=== PATIENT | female | born 1965 | race Caucasian/White ===

== ENCOUNTER 2019-06-01 18:12 | Emergency (ER) | payer OTHER ==
[~2019-06-01] VITALS: Ht 157.5 cm; Wt 76.7 kg
[2019-06-01 19:03] VITALS: BP_SYST 114; BP_SYST 118; BP_SYST 121; BP_DIAS 68; BP_DIAS 72; BP_DIAS 77
[2019-06-01 19:08] LABS: BASOPHILS % (AUTO) 0 % (0-10); EOSINOPHILS # (AUTO) 0.1 10^3/uL (0.0-0.3); EOSINOPHILS % (AUTO) 1 % (0-10); HEMATOCRIT 31 % (35-52); HEMOGLOBIN 9.2 G/DL (11.5-16.0); LYMPHOCYTES # (AUTO) 1.6 X 10^3 (1.0-4.0); LYMPHOCYTES % (AUTO) 21 % (12-44); MEAN CORPUSCULAR HEMOGLOBIN 21 PG (25-34); MEAN CORPUSCULAR HGB CONC 30 G/DL (32-36); MEAN CORPUSCULAR VOLUME 72 FL (80-99); MEAN PLATELET VOLUME 10.1 FL (7.4-10.4); MONOCYTES # (AUTO) 0.8 X 10^3 (0.0-1.0); MONOCYTES % (AUTO) 10 % (0-12); NEUTROPHILS # (AUTO) 5.1 X 10^3 (1.8-7.8); NEUTROPHILS % (AUTO) 68 % (42-75); PLATELET COUNT 422 10^3/uL (130-400); RED CELL DISTRIBUTION WIDTH 16.1 % (10.0-14.5); WHITE BLOOD COUNT 7.5 10^3/uL (4.3-11.0)
--- NOTE | 2019-06-01 19:10 | Diagnostic Imaging Report ---
INDICATION: Dizziness and difficulty breathing. FINDINGS: The heart size, mediastinal configuration, and pulmonary vascularity are within normal limits. There is no pleural effusion, pneumothorax, or pneumonia. The osseous structures are unremarkable. IMPRESSION: No acute cardiopulmonary abnormality. Dictated by: Dictated on workstation # [id number]
[2019-06-01 19:18] LABS: PROTHROMBIN TIME PATIENT 13.1 SEC (12.2-14.7)
[2019-06-01 19:29] LABS: BUN/CREATININE RATIO 16; CARBON DIOXIDE 24 MMOL/L (21-32); CHLORIDE 104 MMOL/L (98-107); CREATININE SERUM 0.99 MG/DL (0.60-1.30); POTASSIUM 4.1 MMOL/L (3.6-5.0); SODIUM 136 MMOL/L (135-145)
[2019-06-01 19:30] LABS: ALANINE AMINOTRANSFERASE 15 U/L (0-55); ALBUMIN 4.2 GM/DL (3.2-4.5); ALKALINE PHOSPHATASE 81 U/L (40-136); BILIRUBIN,TOTAL 0.3 MG/DL (0.1-1.0); CALCIUM 9.3 MG/DL (8.5-10.1); GFR ESTIMATED 59; GLUCOSE 115 MG/DL (70-105); MAGNESIUM 2.1 MG/DL (1.8-2.4); TOTAL PROTEIN 8.2 GM/DL (6.4-8.2)
--- NOTE | 2019-06-01 20:14 | ED General ---
General Chief Complaint: Dizziness/Syncope Stated Complaint: DIZZY Nursing Triage Note: pt was started on clonidine on wednesday for BP et since has had dizzy spells. She's nauseated and feels like shes having heart palpatations Nursing Sepsis Screen: No Definite Risk Source of Information: Patient Exam Limitations: No Limitations History of Present Illness Date Seen by Provider: Jun 01, 2019 Time Seen by Provider: 20:12 Past Cdzxmxk-Hawdtw-Scysod Hx Patient Social History Alcohol Use: Occasionally Uses Recreational Drug Use: No Smoking Status: Never a Smoker 2nd Hand Smoke Exposure: No Recent Foreign Travel: No Contact w/Someone Who Travel: No Recent Infectious Disease Expo: No Recent Hopitalizations: No Physical Abuse: No Sexual Abuse: No Mistreated: No Fear: No Seasonal Allergies Seasonal Allergies: No Past Medical History Surgeries: Yes (GASTRIC BYPASS) Appendectomy, Section, Orthopedic Respiratory: No Hypertension Neurological: Yes (SEIZURE 10-11 YEARS AGO) Female Reproductive Disorders: Denies [employer]ER History: Menopausal Sexually Transmitted Disease: No HIV/AIDS: No Genitourinary: Yes Kidney Infection Gastrointestinal: No Musculoskeletal: Yes Back Injury, Fractures Endocrine: No HEENT: No Loss of Vision: Denies Hearing Impairment: Denies Cancer: No Depression Integumentary: No Blood Disorders: Yes (PREVIOUS ANEMIA) Physical Exam Vital Signs Vital Signs - First Documented 06/01/19 18:18 Temp 96.9 Pulse 74 Resp 18 B/P (MAP) 119/60 (79) Pulse Ox 98 O2 Delivery Room Air Capillary Refill : Less Than 3 Seconds Height, Weight, BMI Height: 5'2.00" Weight: 169lbs. oz. 76.426071cl; BMI Method:Stated Progress/Results/Core Measures Suspected Sepsis Recent Fever Within 48 Hours: No Infection Criteria Present: None New/Unexplained Altered Menta: No Sepsis Screen: No Definite Risk SIRS Temperature:96.9 Pulse: 73 Respiratory Rate: 18 Laboratory Tests 06/01/19 18:49: White Blood Count 7.5 Blood Pressure 114 /68 Mean: 83 Laboratory Tests 06/01/19 18:49: Creatinine 0.99, INR Comment 1.0, Platelet Count 422H, Total Bilirubin 0.3 Results/Orders Lab Results Laboratory Tests Test 06/01/19 18:49 Range/Units White Blood Count 7.5 4.3-11.0 10^3/uL Red Blood Count 4.30 L 4.35-5.85 10^6/uL Hemoglobin 9.2 L 11.5-16.0 G/DL Hematocrit 31 L 35-52 % Mean Corpuscular Volume 72 L 80-99 FL Mean Corpuscular Hemoglobin 21 L 25-34 PG Mean Corpuscular Hemoglobin Concent 30 L 32-36 G/DL Red Cell Distribution Width 16.1 H 10.0-14.5 % Platelet Count 422 H 130-400 10^3/uL Mean Platelet Volume 10.1 7.4-10.4 FL Neutrophils (%) (Auto) 68 42-75 % Lymphocytes (%) (Auto) 21 12-44 % Monocytes (%) (Auto) 10 0-12 % Eosinophils (%) (Auto) 1 0-10 % Basophils (%) (Auto) 0 0-10 % Neutrophils # (Auto) 5.1 1.8-7.8 X 10^3 Lymphocytes # (Auto) 1.6 1.0-4.0 X 10^3 Monocytes # (Auto) 0.8 0.0-1.0 X 10^3 Eosinophils # (Auto) 0.1 0.0-0.3 10^3/uL Basophils # (Auto) 0.0 0.0-0.1 10^3/uL Prothrombin Time 13.1 12.2-14.7 SEC INR Comment 1.0 0.8-1.4 Activated Partial Thromboplast Time 26 24-35 SEC Sodium Level 136 135-145 MMOL/L Potassium Level 4.1 3.6-5.0 MMOL/L Chloride Level 104 98-107 MMOL/L Carbon Dioxide Level 24 21-32 MMOL/L Anion Gap 8 5-14 MMOL/L Blood Urea Nitrogen 16 7-18 MG/DL Creatinine 0.99 0.60-1.30 MG/DL Estimat Glomerular Filtration Rate 59 BUN/Creatinine Ratio 16 Glucose Level 115 H 70-105 MG/DL Calcium Level 9.3 8.5-10.1 MG/DL Corrected Calcium 9.1 8.5-10.1 MG/DL Magnesium Level 2.1 1.8-2.4 MG/DL Total Bilirubin 0.3 0.1-1.0 MG/DL Aspartate Amino Transf (AST/SGOT) 11 5-34 U/L Alanine Aminotransferase (ALT/SGPT) 15 0-55 U/L Alkaline Phosphatase 81 40-136 U/L Myoglobin 42.5 10.0-92.0 NG/ML Troponin I < 0.028 <0.028 NG/ML Total Protein 8.2 6.4-8.2 GM/DL Albumin 4.2 3.2-4.5 GM/DL Thyroid Stimulating Hormone (TSH) 1.70 0.35-4.94 UIU/ML My Orders Orders - MARKOS LEVIIS Cbc With Automated Diff (06/01/19 18:35) Magnesium (06/01/19 18:35) Chest 1 View, Ap/Pa Only (06/01/19 18:35) Ekg Tracing (06/01/19 18:35) Cardiac Profile 1 (06/01/19 18:35) Comprehensive Metabolic Panel (06/01/19 18:35) Myoglobin Serum (06/01/19 18:35) Protime With Inr (06/01/19 18:35) Partial Thromboplastin Time (06/01/19 18:35) O2 (06/01/19 18:35) Monitor-Rhythm Ecg Trace Only (06/01/19 18:35) Lipid Panel (06/02/19 06:00) Ed Iv/Invasive Line Start (06/01/19 18:35) Thyroid Stimulating Hormone (06/01/19 18:45) Orthostatic Vital Signs (Adult (06/01/19 18:54) Vital Signs/I&O 06/01/19 06/01/19 18:18 19:03 Temp 96.9 Pulse 74 60 68 73 Resp 18 B/P (MAP) 119/60 (79) 121/77 (92) 118/72 (87) 114/68 (83) Pulse Ox 98 O2 Delivery Room Air Capillary Refill : Less Than 3 Seconds Blood Pressure Mean: 83 Departure Impression Primary Impression: Chronic anemia Additional Impression: Adverse effect of clonidine Disposition: 01 HOME, SELF-CARE Condition: Stable/Unchanged Departure-Patient Inst. Decision time for Depature: 20:13 Referrals: [facility] (PCP/Family) Primary Care Physician Patient Instructions: Anemia of Chronic Disease Add. Discharge Instructions: Follow-up with [facility] within 1 week for recheck and to discuss management of your chronic anemia.. Call tomorrow morning to schedule an appointment time. Try taking just half a tab of clonidine and check your blood pressure regularly. Return back to the emergency room for worsening symptoms or concerns as needed. All discharge instructions reviewed with patient and/or family. Voiced understanding. TAMMIE LEVI Jun 01, 2019 20:14
[2019-06-01 20:16] VITALS: BP 137/67
== END 2019-06-01 20:20 | disposition home or self-care (01) ==
LOC: ER 18:14
DX: D64.9 Anemia, unspecified (principal); T46.5X5A Adverse effect of other antihypertensive drugs, initial encounter; I10 Essential (primary) hypertension; F32.9 Major depressive disorder, single episode, unspecified; Z98.84 Bariatric surgery status; Z90.49 Acquired absence of other specified parts of digestive tract
CPT/HCPCS: 36415; 71045; 80053; 83735; 83874; 84443; 84484; 85025; 85610; 85730; 93005; 93041

== ENCOUNTER 2019-11-08 13:08 | Observation (INO) | payer SELFPAY ==
[~2019-11-08] VITALS: Ht 154 cm; Wt 72.0 kg
[2019-11-08] VITALS (11 sets, daily range): BP systolic 98–151; BP diastolic 58–97
[2019-11-08] MEDS ORDERED: LACTATED RINGERS 1,000 ML IV ONE ×2 (13:20→15:15)
[2019-11-08 13:27] LABS: BASOPHILS % (AUTO) 0 % (0-10); EOSINOPHILS % (AUTO) 0 % (0-10); HEMATOCRIT 31 % (35-52); HEMOGLOBIN 9.6 G/DL (11.5-16.0); LYMPHOCYTES # (AUTO) 1.5 X 10^3 (1.0-4.0); LYMPHOCYTES % (AUTO) 9 % (12-44); MEAN CORPUSCULAR HEMOGLOBIN 22 PG (25-34); MEAN CORPUSCULAR HGB CONC 31 G/DL (32-36); MEAN CORPUSCULAR VOLUME 71 FL (80-99); MEAN PLATELET VOLUME 10.6 FL (7.4-10.4); MONOCYTES # (AUTO) 0.9 X 10^3 (0.0-1.0); MONOCYTES % (AUTO) 5 % (0-12); NEUTROPHILS % (AUTO) 86 % (42-75); PLATELET COUNT 508 10^3/uL (130-400); RED CELL DISTRIBUTION WIDTH 17.5 % (10.0-14.5); WHITE BLOOD COUNT 17.4 10^3/uL (4.3-11.0)
--- NOTE | 2019-11-08 13:33 | ED Psychosocial ---
General Stated Complaint: CONFUSION Source: patient Exam Limitations: no limitations History of Present Illness Date Seen by Provider: Nov 08, 2019 Time Seen by Provider: 13:09 Initial Comments Here with report of confusion. Apparently she was found in the bathroom confused and there is concerns about seizures or other problems. Patient then admits that she did not fall or hurt herself but she did take up to 30 0.1 mg clonidine. She denies suicidal intent and states that she was just waiting for her boyfriend. She states that she's had suicidal thoughts in the past but she is very sluggish and slurred speech so somewhat difficult to understand. Protecting her airway okay. No hypoxia or hypotension noted and heart rate in the 60s and 70s. Denies taking other medicines. Family reports they noted something was wrong when they heard her falling in the bathroom. Unsure exactly what time she took the pills. Timing/Duration: this afternoon Severity: severe Associated Symptoms: ingestion Allergies and Home Medications Allergies Coded Allergies: tramadol (Verified Allergy, Unknown, 11/08/19) Patient Home Medication List Home Medication List Reviewed: Yes Review of Systems Constitutional: see HPI; No chills, No fever Respiratory: no symptoms reported Cardiovascular: no symptoms reported Psychiatric/Neurological: See HPI, Emotional Problems Unable to complete review of systems due to altered mental status. She denies any pain, injury or other complaint currently. 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 oz. 76.169979ns; BMI Method:Stated General Appearance: WD/WN, no apparent distress HEENT: normal ENT inspection, pharynx normal, other (pupils sluggish then more pinpoint then dilated. No obvious head injury noted.) Neck: full range of motion, supple Respiratory: lungs clear, normal breath sounds Cardiovascular: regular rate, rhythm, no murmur Gastrointestinal: non tender, soft Extremities: non-tender, normal inspection Neurologic/Psychiatric: alert, depressed affect, other (slurred speech) Appearance/Memory: denies illness, disheveled Behavior/Eye Contact: cooperative, decreased rate of speech Thoughts/Hallucinations: no apparent hallucination Skin: normal color, warm/dry Progress/Results/Core Measures Results/Orders Lab Results Laboratory Tests Test 11/08/19 13:13 11/08/19 13:23 11/08/19 13:56 Range/Units White Blood Count 17.4 H 4.3-11.0 10^3/uL Red Blood Count 4.40 4.35-5.85 10^6/uL Hemoglobin 9.6 L 11.5-16.0 G/DL Hematocrit 31 L 35-52 % Mean Corpuscular Volume 71 L 80-99 FL Mean Corpuscular Hemoglobin 22 L 25-34 PG Mean Corpuscular Hemoglobin Concent 31 L 32-36 G/DL Red Cell Distribution Width 17.5 H 10.0-14.5 % Platelet Count 508 H 130-400 10^3/uL Mean Platelet Volume 10.6 H 7.4-10.4 FL Neutrophils (%) (Auto) 86 H 42-75 % Lymphocytes (%) (Auto) 9 L 12-44 % Monocytes (%) (Auto) 5 0-12 % Eosinophils (%) (Auto) 0 0-10 % Basophils (%) (Auto) 0 0-10 % Neutrophils # (Auto) 15.0 H 1.8-7.8 X 10^3 Lymphocytes # (Auto) 1.5 1.0-4.0 X 10^3 Monocytes # (Auto) 0.9 0.0-1.0 X 10^3 Eosinophils # (Auto) 0.0 0.0-0.3 10^3/uL Basophils # (Auto) 0.0 0.0-0.1 10^3/uL Neutrophils % (Manual) 79 % Lymphocytes % (Manual) 14 % Monocytes % (Manual) 4 % Eosinophils % (Manual) 1 % Basophils % (Manual) 0 % Band Neutrophils 2 % Anisocytosis SLIGHT Microcytosis SLIGHT Elliptocytes SLIGHT Urine Test NEGATIVE NEGATIVE Sodium Level 134 L 135-145 MMOL/L Potassium Level 4.7 3.6-5.0 MMOL/L Chloride Level 103 98-107 MMOL/L Carbon Dioxide Level 21 21-32 MMOL/L Anion Gap 10 5-14 MMOL/L Blood Urea Nitrogen 14 7-18 MG/DL Creatinine 0.80 0.60-1.30 MG/DL Estimat Glomerular Filtration Rate > 60 BUN/Creatinine Ratio 18 Glucose Level 159 H 70-105 MG/DL Calcium Level 9.2 8.5-10.1 MG/DL Corrected Calcium 9.2 8.5-10.1 MG/DL Total Bilirubin 0.5 0.1-1.0 MG/DL Aspartate Amino Transf (AST/SGOT) 19 5-34 U/L Alanine Aminotransferase (ALT/SGPT) 14 0-55 U/L Alkaline Phosphatase 90 40-136 U/L Total Protein 7.9 6.4-8.2 GM/DL Albumin 4.0 3.2-4.5 GM/DL Salicylates Level < 5.0 L 5.0-20.0 MG/DL Acetaminophen Level < 10 L 10-30 UG/ML Serum Alcohol < 10 <10 MG/DL Urine Color YELLOW Urine Clarity CLEAR Urine pH 5.5 5-9 Urine Specific [place] >=1.030 1.016-1.022 Urine Protein NEGATIVE NEGATIVE Urine Glucose (UA) NEGATIVE NEGATIVE Urine Ketones NEGATIVE NEGATIVE Urine Nitrite NEGATIVE NEGATIVE Urine Bilirubin NEGATIVE NEGATIVE Urine Urobilinogen 0.2 < = 1.0 MG/DL Urine Leukocyte Esterase NEGATIVE NEGATIVE Urine RBC (Auto) 1+ H NEGATIVE Urine RBC RARE /HPF Urine WBC RARE /HPF Urine Squamous Epithelial Cells 0-2 /HPF Urine Crystals NONE /LPF Urine Bacteria TRACE /HPF Urine Casts PRESENT /LPF Urine Hyaline Casts 0-2 H /LPF Urine Mucus SMALL H /LPF Urine Culture Indicated NO Urine Opiates Screen NEGATIVE NEGATIVE Urine Oxycodone Screen NEGATIVE NEGATIVE Urine Methadone Screen NEGATIVE NEGATIVE Urine Propoxyphene Screen NEGATIVE NEGATIVE Urine Barbiturates Screen NEGATIVE NEGATIVE Ur Tricyclic Antidepressants Screen NEGATIVE NEGATIVE Urine Phencyclidine Screen NEGATIVE NEGATIVE Urine Amphetamines Screen NEGATIVE NEGATIVE Urine Methamphetamines Screen NEGATIVE NEGATIVE Urine Benzodiazepines Screen NEGATIVE NEGATIVE Urine Cocaine Screen NEGATIVE NEGATIVE Urine Cannabinoids Screen NEGATIVE NEGATIVE Lactic Acid Level 1.99 0.50-2.00 MMOL/L Micro Results Microbiology 11/08/19 Influenza Types A,B Antigen (SHAYY) - Final, Complete My Orders Orders - ELMIRA REDD MD Ua Culture If Indicated (11/08/19 13:20) Cbc With Automated Diff (11/08/19 13:20) Comprehensive Metabolic Panel (11/08/19 13:20) Alcohol (11/08/19 13:20) Drug Screen Stat (Urine) (11/08/19 13:20) Acetaminophen (11/08/19 13:20) Salicylate (11/08/19 13:20) Ekg Tracing (11/08/19 13:20) Ed Iv/Invasive Line Start (11/08/19 13:20) Monitor-Rhythm Ecg Trace Only (11/08/19 13:20) Bh Status Checks/Observation Q15M (11/08/19 13:20) Ed Iv/Invasive Line Start (11/08/19 13:20) Ed Iv/Invasive Line Start (11/08/19 13:20) Ed Iv/Invasive Line Start (11/08/19 13:20) Lactated Ringers (Lr 1000 Ml Iv Solution (11/08/19 13:20) Manual Differential (11/08/19 13:13) Ct Head Wo (11/08/19 13:35) Hcg,Qualitative Urine (11/08/19 13:35) Chest 1 View, Ap/Pa Only (11/08/19 13:52) Lactic Acid Analyzer (11/08/19 13:52) Blood Culture (11/08/19 13:52) Influenza A And B Antigens (11/08/19 13:52) Ceftriaxone For Iv Use (Rocephin For I (11/08/19 15:15) Oseltamivir 75 Mg Capsule (Tamiflu 75 (11/08/19 15:15) Medications Given in ED Current Medications Medications Dose Ordered Sig/Brittaney Route Start Time Stop Time Status Last Admin Dose Admin Ceftriaxone Sodium 1000 mg/ Sterile Water 10 ml @ 200 mls/hr ONCE ONCE IV 11/08/19 15:15 11/08/19 15:17 11/08/19 15:10 200 MLS/HR Lactated Ringer's 1,000 ml @ 0 mls/hr Q0M ONCE IV 11/08/19 13:20 11/08/19 13:22 DC 11/08/19 13:40 0 MLS/HR Oseltamivir Phosphate 75 mg ONCE ONCE PO 11/08/19 15:15 11/08/19 15:16 11/08/19 15:10 75 MG Vital Signs/I&O 11/08/19 13:10 Temp 37.1 Pulse 75 Resp 18 B/P (MAP) 110/84 (93) Pulse Ox 97 Progress Progress Note : Progress Note Seen and evaluated. IV, labs, UA, UDS, LR 1 L bolus and monitor ordered. Monitor patient. We will go ahead and get CT head due to apparent falls. 10/29/04: I discussed the case with Dr. Soliz and she accepts patient for admission to observe past the concerning timeframe for clonidine overdose. Patient also found to have influenza B and pansinusitis so we will initiate Tamiflu and Rocephin 1 g IV. Blood pressure is on the low end of normal with blood pressure currently 102/58. We will continue IV fluids. I have discussed the case with Dr. Wheat and he accepts patient in consult. Admit to the ICU. Patient and family agree with plan. Initial ECG Impression Date: Nov 08, 2019 Initial ECG Impression Time: 13:13 Initial ECG Rate: 66 Initial ECG Rhythm: Normal Sinus Initial ECG Impression: Normal Initial ECG Comparisson: Unchanged Comment Sinus rhythm with normal axis. No evidence of ST elevation [place]. Unchanged from previous of 8/H was 19. Interpreted by me. Diagnostic Imaging Diagonstic Imaging: CT Plain Films/CT/US/NM/MRI: head Comments NAME: [facility] REC#: [id number] PT STATUS: REG ER : 1965 PHYSICIAN: ELMIRA REDD MD ADMIT DATE: 11/08/19/ER Draft Date of Exam:11/08/19 CT HEAD WO PROCEDURE: CT head without contrast. TECHNIQUE: Multiple contiguous axial images were obtained through the brain without the use of intravenous contrast. Auto Exposure Controls were utilized during the CT exam to meet ALARA standards for radiation dose reduction. INDICATION: Influenza and dizziness. COMPARISON: No prior studies are available for comparison. FINDINGS: The ventricles and sulci are within normal limits. No sulcal effacement or midline shift is detected. No acute intra-axial or extra-axial hemorrhage is detected. Cisterns are patent. Maxillary sinuses are opacified. There is fluid in the sphenoid sinus. There is mucosal thickening of multiple ethmoid air cells. IMPRESSION: 1. No acute intracranial process detected. 2. Pansinusitis. Dictated on workstation # [id number] Dict: 11/08/19 1445 Trans: 11/08/19 1451 [id number] Interpreted by: JAKE REARDON MD Electronically signed by: Departure Communication (Admissions) Time/Spoke to Admitting Phy: 14:55 Time/Spoke to Consulting Phy: 15:05 Impression Primary Impression: Drug overdose Qualified Codes: T50.904A - Poisoning by unspecified drugs, medicaments and biological substances, undetermined, initial encounter Additional Impressions: Influenza B Acute pansinusitis Qualified Codes: J01.41 - Acute recurrent pansinusitis Disposition: ADMITTED INPATIENT Condition: Stable Admissions Decision to Admit Reason: Admit from ER (General) Decision to Admit/Date: Nov 08, 2019 Time/Decision to Admit Time: 14:55 Departure-Patient Inst. Referrals: [facility] (PCP/Family) Primary Care Physician ELMIRA REDD MD Nov 08, 2019 13:33
[2019-11-08 13:37] LABS: BILIRUBIN,URINE NEGATIVE (NEGATIVE); CLARITY,URINE CLEAR; COLOR,URINE YELLOW; GLUCOSE, URINE (UA) NEGATIVE (NEGATIVE); KETONES,URINE NEGATIVE (NEGATIVE); LEUKOCYTE ESTERASE ,URINE NEGATIVE (NEGATIVE); NITRITE,URINE NEGATIVE (NEGATIVE); PH,URINE 5.5 (5-9); PROTEIN,URINE NEGATIVE (NEGATIVE)
[2019-11-08 13:45] LABS: ALANINE AMINOTRANSFERASE 14 U/L (0-55); ALKALINE PHOSPHATASE 90 U/L (40-136); BILIRUBIN,TOTAL 0.5 MG/DL (0.1-1.0); BUN/CREATININE RATIO 18; CALCIUM 9.2 MG/DL (8.5-10.1); CARBON DIOXIDE 21 MMOL/L (21-32); CHLORIDE 103 MMOL/L (98-107); GFR ESTIMATED > 60; GLUCOSE 159 MG/DL (70-105); POTASSIUM 4.7 MMOL/L (3.6-5.0); SALICYLATE < 5.0 MG/DL (5.0-20.0); SODIUM 134 MMOL/L (135-145); TOTAL PROTEIN 7.9 GM/DL (6.4-8.2)
[2019-11-08 13:46] LABS: ACETAMINOPHEN < 10 UG/ML (10-30)
[2019-11-08 13:52] LABS: BACTERIA,URINE TRACE /HPF; HYALINE CASTS, URINE 0-2 /LPF; RBC,URINE RARE /HPF; SQUAMOUS EPITHELIAL CELL,UR 0-2 /HPF; WBC,URINE RARE /HPF
[2019-11-08 13:54] LABS: AMPHETAMINE SCREEN, URINE NEGATIVE (NEGATIVE); BARBITURATE SCREEN URINE NEGATIVE (NEGATIVE); BENZODIAZEPINES SCREEN URINE NEGATIVE (NEGATIVE); CANNABINOID SCREEN, URINE NEGATIVE (NEGATIVE); COCAINE SCREEN URINE NEGATIVE (NEGATIVE); METHADONE STAT NEGATIVE (NEGATIVE); METHAMPHETAMINE SCREEN URINE S NEGATIVE (NEGATIVE); OPIATE SCREEN URINE NEGATIVE (NEGATIVE); OXYCODONE STAT NEGATIVE (NEGATIVE); PROPOXYPHENE STAT NEGATIVE (NEGATIVE); TRICYCLIC ANTIDEPRESSANTS SCRE NEGATIVE (NEGATIVE)
[2019-11-08] MEDS ORDERED: ZOLP5TAB3 (13:56)
[2019-11-08] MEDS ORDERED: TRZ50T (13:56)
[2019-11-08] MEDS ORDERED: CLON0.1T PO (13:56)
[2019-11-08] MEDS ORDERED: TIZA2TAB4 PO (13:56)
[2019-11-08] MEDS ORDERED: VORT10TA PO (13:56)
--- NOTE | 2019-11-08 14:00 | NUR ---
pt son here with pt medication. Clonidine 0.1 mg. Filled on 10/23/19 with 60 tabs, with 10 left. Tizanidine 2 mg. Filled on 10/30/19 with 60 tabs, and no left in the bottle. Trintellix 10 mg sample bottle 18 tablets in the bottle, with no prescription info on the bottle.
[2019-11-08 14:08] LABS: ANISOCYTOSIS SLIGHT; BAND NEUTROPHILS 2 %; BASOPHILS % (MANUAL) 0 %; ELLIPT/OVALOCYTES SLIGHT; EOSINOPHILS % (MANUAL) 1 %; LYMPHOCYTES % (MANUAL) 14 %; MICROCYTOSIS SLIGHT; MONOCYTES % (MANUAL) 4 %; NEUTROPHILS % (MANUAL) 79 %
--- NOTE | 2019-11-08 14:43 | NUR ---
pt back from ct at this time.
--- NOTE | 2019-11-08 14:51 | Diagnostic Imaging Report ---
PROCEDURE: CT head without contrast. TECHNIQUE: Multiple contiguous axial images were obtained through the brain without the use of intravenous contrast. Auto Exposure Controls were utilized during the CT exam to meet ALARA standards for radiation dose reduction. INDICATION: Influenza and dizziness. COMPARISON: No prior studies are available for comparison. FINDINGS: The ventricles and sulci are within normal limits. No sulcal effacement or midline shift is detected. No acute intra-axial or extra-axial hemorrhage is detected. Cisterns are patent. Maxillary sinuses are opacified. There is fluid in the sphenoid sinus. There is mucosal thickening of multiple ethmoid air cells. IMPRESSION: 1. No acute intracranial process detected. 2. Pansinusitis. Dictated by: Dictated on workstation # [id number]
--- NOTE | 2019-11-08 14:58 | Diagnostic Imaging Report ---
INDICATION: Suspected overdose. Time of exam 2:43 PM Correlation is made with prior exam from 06/01/2019. The heart size is stable. The pulmonary vascularity is unremarkable. No infiltrate, effusion or pneumothorax is detected. Postop changes of lower cervical ACDF are noted. IMPRESSION: Stable chest. No acute cardiopulmonary process is detected. Dictated by: Dictated on workstation # [id number]
[2019-11-08] MEDS ORDERED: OSELTAMIVIR 75 MG (TAMIFLU) CAPSULE PO ONE (15:15)
[2019-11-08] MEDS ORDERED: cefTRIAXone FOR IV USE 1,000 MG in WATER (STERILE) FOR INJECTION 10 ML IV ONE (15:15)
[2019-11-08] MEDS ORDERED: ONDANSETRON 4 MG/2 ML (SDV) Z0FRAN IV PRN (16:00)
--- NOTE | 2019-11-08 16:03 | Pulmonary Consultation ---
History of Present Illness History of Present Illness Date of Admission Allergies and Home Medications Allergies Coded Allergies: tramadol (Verified Allergy, Unknown, 11/08/19) Past Xiqgjvy-Sftrkk-Qhegye Hx Past Med/Social Hx: Reviewed Nursing Past Med/Soc Hx Patient Social History Alcohol Use: Occasionally Uses Recreational Drug Use: No Smoking Status: Current Everyday Smoker 2nd Hand Smoke Exposure: No Recent Foreign Travel: No Contact w/Someone Who Travel: No Recent Infectious Disease Expo: No Recent Hopitalizations: No Physical Abuse: No Sexual Abuse: No Mistreated: No Seasonal Allergies Seasonal Allergies: No Past Medical History Surgeries: Yes (GASTRIC BYPASS, back, neck, l knee) Appendectomy, Section, Orthopedic Respiratory: No Hypertension Neurological: Yes (SEIZURE 10-11 YEARS AGO) Female 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 Pt reports issues with her boyfriend wanting to seperate and lack of support system locally. Integumentary: No Blood Disorders: Yes (PREVIOUS ANEMIA) Family Medical History Reviewed Nursing Family Hx No Pertinent Family Hx Sepsis Event Evaluation Height, Weight, BMI Height: 5'2.00" Weight: 169lbs. oz. 76.862200bp; 30.00 BMI Method:Stated Exam Exam Vital Signs Date Time Temp Pulse Resp B/P (MAP) Pulse Ox O2 Delivery O2 Flow Rate FiO2 11/08/19 13:10 37.1 75 18 110/84 (93) 97 Height & Weight Height: 5'2.00" Weight: 169lbs. oz. 76.308085ff; 30.00 BMI Method:Stated Capillary Refill: Less Than 3 Seconds Gastrointestinal: non tender, soft Results Lab Laboratory Tests 11/08/19 13:13 PARVEZ DEVINE DO Nov 08, 2019 16:03
[2019-11-08] MEDS ORDERED: CATHETER FLUSH 10 ML SYR IV PRN (16:15)
[2019-11-08] MEDS ORDERED: ZOLP5TAB PO (16:49)
[2019-11-08] MEDS ORDERED: NAPR220T66 PO (16:58)
[2019-11-08] MEDS ORDERED: DIPH25CA79 PO (16:58)
[2019-11-08] MEDS ORDERED: ACET-2715 PO (16:58)
[2019-11-08] MEDS ORDERED: OSELTAMIVIR 75 MG (TAMIFLU) CAPSULE PO SCH (17:00)
--- NOTE | 2019-11-08 17:04 | NUR ---
WENT OVER THE EXT MED HX WITH THE PATIENT. SHE VERIFIED HOW SHE TAKES THEM. SHE STATES SHE RECEIVES SAMPLES OF HER TRINTELLIX NOW 10MG DAILY. ED REPORTED SON BROUGHT THIS BOTTLE IN IN THE PATIENT NOTES. SHE STATES SHE TAKES TIZANIDINE NEEDED FOR ANXIETY NOT MUSCLE SPASMS. SHE TAKES THE FOLLOWING OTC: TYLENOL PM 2 HS BENADRYL PRN ALLERGIES/DRAINAGE ALEVE 2 PRN PAIN
[2019-11-08] MEDS: LACTATED RINGERS 1,000 ML IV SCH ×2 (17:09→21:34)
[2019-11-08] MEDS ORDERED: FLU QUADRIvalent (5+ YOA) 2019-2020 (AFLURIA) 0.5 ML IM ONE (17:15)
[2019-11-08] MEDS ORDERED: ACETAMINOPHEN 325 MG TABLET ONE (19:42)
[2019-11-08] MEDS ORDERED: IBUPROFEN TABLET 200 MG TAB PO ONE (19:43)
[2019-11-08] MEDS ORDERED: diphenhydrAMINE 25 MG TAB (BENADRYL) PO PRN (19:45)
[2019-11-08] MEDS ORDERED: ONDANSETRON 4 MG/2 ML (SDV) Z0FRAN IVP PRN (19:45)
[2019-11-08] MEDS ORDERED: DOCUSATE SODIUM 100 MG (COLACE) CAP PO PRN (19:45)
[2019-11-08] MEDS ORDERED: POLYETHYLENE GLYCOL 17 GM (MIRALAX) PACK PO PRN (19:45)
[2019-11-08] MEDS ORDERED: guaiFENesin/DM (ROBITUSSIN DM) 10 ML UDC PO PRN (19:45)
[2019-11-08] MEDS: IBUPROFEN TABLET 200 MG TAB PO PRN (19:49)
[2019-11-08] MEDS: ACETAMINOPHEN 325 MG TABLET PO PRN (19:50)
[2019-11-08] MEDS: fentaNYL INJECTION 100 MCG/2 ML AMP IVP PRN (21:34)
[2019-11-09] VITALS (11 sets, daily range): BP systolic 133–170; BP diastolic 80–107
[2019-11-09] MEDS: fentaNYL INJECTION 100 MCG/2 ML AMP IVP PRN ×3 (01:33→10:14)
[2019-11-09 03:33] LABS: BASOPHILS % (AUTO) 0 % (0-10); EOSINOPHILS # (AUTO) 0.1 10^3/uL (0.0-0.3); EOSINOPHILS % (AUTO) 1 % (0-10); HEMATOCRIT 29 % (35-52); HEMOGLOBIN 8.7 G/DL (11.5-16.0); LYMPHOCYTES # (AUTO) 1.4 X 10^3 (1.0-4.0); LYMPHOCYTES % (AUTO) 19 % (12-44); MEAN CORPUSCULAR HEMOGLOBIN 22 PG (25-34); MEAN CORPUSCULAR HGB CONC 30 G/DL (32-36); MEAN CORPUSCULAR VOLUME 73 FL (80-99); MEAN PLATELET VOLUME 10.6 FL (7.4-10.4); MONOCYTES # (AUTO) 0.6 X 10^3 (0.0-1.0); MONOCYTES % (AUTO) 8 % (0-12); NEUTROPHILS # (AUTO) 5.3 X 10^3 (1.8-7.8); NEUTROPHILS % (AUTO) 72 % (42-75); PLATELET COUNT 394 10^3/uL (130-400); RED CELL DISTRIBUTION WIDTH 17.2 % (10.0-14.5); WHITE BLOOD COUNT 7.4 10^3/uL (4.3-11.0)
[2019-11-09 04:01] LABS: BUN/CREATININE RATIO 13; CALCIUM 8.9 MG/DL (8.5-10.1); CARBON DIOXIDE 20 MMOL/L (21-32); CHLORIDE 107 MMOL/L (98-107); CREATININE SERUM 0.72 MG/DL (0.60-1.30); GFR ESTIMATED > 60; GLUCOSE 144 MG/DL (70-105); MAGNESIUM 1.7 MG/DL (1.6-2.4); PHOSPHORUS 3.4 MG/DL (2.3-4.7); POTASSIUM 3.3 MMOL/L (3.6-5.0); SODIUM 139 MMOL/L (135-145)
[2019-11-09] MEDS: ACETAMINOPHEN 325 MG TABLET PO PRN (04:17)
[2019-11-09] MEDS: IBUPROFEN TABLET 200 MG TAB PO PRN (04:18)
[2019-11-09] MEDS: LACTATED RINGERS 1,000 ML IV SCH (04:21)
--- NOTE | 2019-11-09 04:59 | Pulmonary Progress Note ---
Subjective Time Seen by a Provider: 04:56 Subjective/Events-last exam Pt is doing better. Sepsis Event Evaluation Height, Weight, BMI Height: 5'2.00" Weight: 169lbs. oz. 76.413707ac; 30.00 BMI Method:Stated Focused Exam Lactate Level 11/08/19 13:56: Lactic Acid Level 1.99 Exam Exam Vital Signs Date Time Temp Pulse Resp B/P (MAP) Pulse Ox O2 Delivery O2 Flow Rate FiO2 11/09/19 04:00 73 28 146/91 (109) 95 Room Air 11/09/19 04:00 94 Room Air 11/09/19 03:52 36.6 11/09/19 03:00 73 11 144/96 (112) 95 Room Air 11/09/19 02:00 91 14 161/98 (119) 97 Room Air 11/09/19 01:00 79 14 163/107 (125) 97 Room Air 11/09/19 01:00 79 11/09/19 00:00 74 10 154/96 (115) 97 Room Air 11/09/19 00:00 94 Room Air 11/09/19 00:00 36.8 11/08/19 23:00 71 13 139/95 (110) 98 Room Air 11/08/19 22:00 75 20 148/88 (108) 97 Room Air 11/08/19 21:00 75 15 142/81 (101) 96 Room Air 11/08/19 20:00 94 Room Air 11/08/19 20:00 78 13 151/87 (108) 95 Room Air 11/08/19 20:00 37.0 11/08/19 19:00 68 11/08/19 19:00 65 14 120/75 (90) 97 Room Air 11/08/19 18:00 115 123/97 (106) 95 Room Air 11/08/19 17:00 71 115/70 (85) 98 Room Air 11/08/19 16:00 92 35 98/60 (73) Room Air 11/08/19 16:00 96 Room Air 11/08/19 15:59 68 11/08/19 15:40 37.1 60 18 102/62 (93) 95 11/08/19 15:00 59 18 102/58 (73) 96 Room Air 11/08/19 14:00 60 17 113/72 (86) 94 Room Air 11/08/19 13:10 37.1 75 18 110/84 (93) 97 11/08/19 13:00 110/84 (93) I & O 11/09/19 07:00 Intake Total 1390 ml Output Total 1150 ml Balance 240 ml Height & Weight Height: 5'2.00" Weight: 169lbs. oz. 76.981705dl; 30.00 BMI Method:Stated General Appearance: No Apparent Distress, WD/WN HEENT: PERRL/EOMI, Normal ENT Inspection, Pharynx Normal Neck: Full Range of Motion, Normal Inspection, Non Tender Respiratory: Chest Non Tender, No Accessory Muscle Use, No Respiratory Distress, Decreased Breath Sounds Capillary Refill: Less Than 3 Seconds Gastrointestinal: non tender, soft Extremity: Normal Capillary Refill, Normal Inspection, No Pedal Edema Neurologic/Psychiatric: Alert Skin: Normal Color, Warm/Dry Lymphatic: No Adenopathy Results Lab Laboratory Tests 11/08/19 13:13 11/09/19 02:52 Assessment/Plan Assessment/Plan OD - Clonidine -Poison control following Influenza B -Tamiflu Dehydration -IVF with LR Anemia -Monitor Hypokalemia/hypomag -replace Possible discharge today . Will transfer out of ICU to 4th floor. PARVEZ DEVINE DO Nov 09, 2019 04:58
[2019-11-09] MEDS ORDERED: OSELTAMIVIR 75 MG (TAMIFLU) CAPSULE PO SCH ×2 (05:00→12:15)
[2019-11-09] MEDS: POTASSIUM CL 10MEQ/50ML IVPB 50 ML IV SCH ×2 (05:37→06:09)
[2019-11-09] MEDS: MAGNESIUM 1 GM/100 ML IVPB 100 ML IV SCH ×2 (05:37→06:39)
[2019-11-09] MEDS ORDERED: KCL 20 MEQ TAB (K-DUR) PO ONE ×3 (06:09→12:05)
--- NOTE | 2019-11-09 08:39 | Diagnostic Imaging Report ---
INDICATION: Shortness of breath. COMPARISON: 11/08/2019 FINDINGS: Single view chest demonstrates clear lungs bilaterally. The heart is normal. There is no pneumothorax. Osseous structures are age-appropriate. IMPRESSION: Negative chest. Dictated by: Dictated on workstation # [id number]
--- NOTE | 2019-11-09 10:00 | NUR ---
RESTING IN BED, ORIENTED TO ROOM, CALL LIGHT WITHIN REACH, FENTANYL 50 MCG GIVEN IV FOR PAIN, C/O HEADACHE, ON DROPLET ISOLATION
--- NOTE | 2019-11-09 10:00 | NUR ---
DOES NOT WANT FLU VACCINE
--- NOTE | 2019-11-09 10:02 | Short Stay Summary-Hospitalist ---
History of Present Illness HPI/Chief Complaint CC: Overdose on Clonidine HPI: Wants her home meds restarted Ready to go home No suicidal ideation No significant depression reported Ready for DC Source: patient Date Seen 11/09/19 Time Seen by a Provider: 09:00 Attending Physician Nela Soliz DO PCP No,Local Physician Referring Physician Date of Admission Nov 08, 2019 at 15:09 Home Medications & Allergies Home Medications Reviewed patient Home Medication Reconciliation performed by pharmacy medication reconciliations crown and bridge dental lab technician and/or nursing. Patients Allergies have been reviewed. Allergies Allergies Coded Allergies tramadol (Verified Allergy, Unknown, 11/08/19) Past Bjvatga-Hagkib-Mzggly Hx Past Med/Social Hx: Reviewed Nursing Past Med/Soc Hx, Reviewed and Corrections made Patient Social History Marrital Status: single Alcohol Use: Occasionally Uses Recreational Drug Use: No Smoking Status: Current Everyday Smoker 2nd Hand Smoke Exposure: No Recent Foreign Travel: No Contact w/other who traveled: No Recent Hopitalizations: No Recent Infectious Disease Expo: No Seasonal Allergies Seasonal Allergies: No Past Medical History Surgeries: Appendectomy, Section, Orthopedic Cardiac: Hypertension Sexually Transmitted Disease: No HIV/AIDS: No Female Reproductive Disorders: Denies Menopausal Genitourinary: Kidney Infection Musculoskeletal: Back Injury, Fractures Loss of Vision: Denies Hearing Impairment: Denies Psychosocial: Suicide Attempts, Depression History of Blood Disorders: Yes (PREVIOUS ANEMIA) Family History Reviewed Nursing Family Hx No Pertinent Family Hx Review of Systems Constitutional: see HPI Physical Exam Physical Exam Vital Signs Vital Signs - First Documented 11/08/19 11/08/19 11/08/19 13:00 13:10 14:00 Temp 37.1 Pulse 75 Resp 18 B/P (MAP) 110/84 (93) Pulse Ox 97 O2 Delivery Room Air Capillary Refill : Less Than 3 Seconds Height, Weight, BMI Height: 5'2.00" Weight: 169lbs. oz. 76.494133vy; 30.00 BMI Method:Stated General Appearance: No Apparent Distress, WD/WN Eyes: Bilateral Eye Normal Inspection, Bilateral Eye PERRL HEENT: PERRL/EOMI, TMs Normal, Normal ENT Inspection, Pharynx Normal Neck: Full Range of Motion, Normal Inspection, Non Tender, Supple, Carotid B ruit Respiratory: Chest Non Tender, Lungs Clear, Normal Breath Sounds, No Accessory Muscle Use, No Respiratory Distress Cardiovascular: Regular Rate, Rhythm, No Edema, No Gallop, No JVD, No Murmur, Normal Peripheral Pulses Gastrointestinal: Normal Bowel Sounds, No Organomegaly, No Pulsatile Mass, Non Tender, Soft Back: Normal Inspection, No CVA Tenderness, No Vertebral Tenderness Extremity: Normal Capillary Refill, Normal Inspection, Normal Range of Motion, Non Tender, No Calf Tenderness, No Pedal Edema Neurologic/Psychiatric: Alert, Oriented x3, No Motor/Sensory Deficits, Normal Mood/Affect Skin: Normal Color, Warm/Dry Lymphatic: No Adenopathy Results Results/Procedures Labs Laboratory Tests 11/08/19 13:13 11/09/19 02:52 Patient resulted labs reviewed. Short Stay Diagnosis Discharge Diagnosis-Short Stay Admission Diagnosis Clonidine OD HTN Final Discharge Diagnosis Clonidine OD HTN Conclusion Plan DC home Diagnosis/Problems Diagnosis/Problems (1) Drug overdose Status: Acute Qualifiers: Qualified Codes: T50.904A - Poisoning by unspecified drugs, medicaments and biological substances, undetermined, initial encounter Clinical Quality Measures DVT/VTE Risk/Contraindication: Risk Factor Score Per Nursin RFS Level Per Nursing on Admit: 2=Moderate NELA SOLIZ DO Nov 09, 2019 10:02
[2019-11-09] MEDS ORDERED: OSLT75C PO (10:04)
[2019-11-09] MEDS ORDERED: KCL 10 MEQ TAB (MICRO K) PO ONE ×2 (10:15→12:10)
[2019-11-09] MEDS ORDERED: RELABEL FOR HOME USE MC SCH (10:15)
[2019-11-09] MEDS ORDERED: NON-FORMULARY MEDICATION 1 EA EA (Tizanidine HCl 2 MG) PO PRN (10:15)
--- NOTE | 2019-11-09 10:33 | NUR ---
0820 PT TRANSFERRED TO ROOM 409 VIA W/C ALONG WITH PERSONAL ITEMS, HOME MEDICATIONS, AND ISOLATION CART. REPORT GIVEN AT BEDSIDE TO Fide ESPINAL RN.
[2019-11-09] MEDS ORDERED: amLODIPine 5 MG (NORVASC) TAB PO NR (12:00)
--- NOTE | 2019-11-09 12:11 | NUR ---
NORVASC 5MG GIVEN PO FOR ELEVATED BP 164/[address] DICKINSON
[2019-11-09] MEDS ORDERED: NAPROXEN 250 MG (NAPROSYN) TABLET PO PRN (12:15)
[2019-11-09] MEDS ORDERED: diphenhydrAMINE 25 MG TAB (BENADRYL) PO PRN (12:15)
[2019-11-09] MEDS ORDERED: cefTRIAXone 1,000 MG/SWFI 10 ML IV PUSH IV SCH ×2 (15:00)
[2019-11-09] MEDS ORDERED: ZOLPIDEM 5 MG (AMBIEN) TAB PO SCH (21:00)
[2019-11-09] MEDS ORDERED: NON-FORMULARY MEDICATION 1 EA EA (Acetaminophen/Diphenhydramine (Tylenol Pm Ex-Strength Ca PO SCH (21:00)
[2019-11-10] MEDS ORDERED: NON-FORMULARY MEDICATION 1 EA EA (Vortioxetine Hydrobromide (Trintellix) 10 MG) PO SCH (09:00)
== END 2019-11-09 13:35 | disposition home or self-care (01) ==
LOC: EDUNIT# 13:08 → ER 13:08 → ICU 15:09 → 4TH 11-09 06:33 → ICU 11-09 08:02 → 4TH 11-09 08:19
PROVIDERS: ADMIT Internal Medicine; ATTEND Internal Medicine
DX: T46.5X4A Poisoning by other antihypertensive drugs, undetermined, initial encounter (principal); I10 Essential (primary) hypertension; R41.0 Disorientation, unspecified; J10.1 Influenza due to other identified influenza virus with other respiratory manifestations; F17.210 Nicotine dependence, cigarettes, uncomplicated; F32.9 Major depressive disorder, single episode, unspecified; Z90.89 Acquired absence of other organs; Z88.5 Allergy status to narcotic agent
CPT/HCPCS: 36415; 70450; 71045; 80048; 80053; 80306; 80320; 80329; 81000; 83605; 83735; 84100; 84703; 85007; 85025; 85027; 87040; 87081; 87804; 93005; 93041; 96361; 96374; G0378

== ENCOUNTER 2020-07-04 09:37 | Outpatient (RCR) | payer BC, OTHER ==
[~2020-07-04 09:37] MED LIST: ACET-3075 PO; CLON0.1T PO; DIPH25CA79 PO; NAPR220T66 PO; OSLT75C PO; TIZA2TAB7 PO; TRZ50T; VORT10TA PO; ZOLP5TAB PO; ZOLP5TAB3
[2020-07-04] MEDS ORDERED: diphenhydrAMINE 25 MG TAB (BENADRYL) CANCER CENTER PO ONE (10:38)
[2020-07-04] MEDS ORDERED: FERRIC CARBOXYMALTOSE (CANCER) 750 MG in NS (IVPB) CANCER CENTER 250 ML IV SCH (11:00)
[2020-07-12] MEDS ORDERED: FERRIC CARBOXYMALTOSE (CANCER) 750 MG in NS (IVPB) CANCER CENTER 250 ML IV SCH (13:05)
== END 2020-07-12 13:05 | disposition home or self-care (01) ==
LOC: ONC 09:37
PROVIDERS: ATTEND Internal Medicine Hematology & Oncology
DX: Z51.11 Encounter for antineoplastic chemotherapy (principal); D64.9 Anemia, unspecified; I10 Essential (primary) hypertension; Z98.84 Bariatric surgery status; Z90.49 Acquired absence of other specified parts of digestive tract; Z98.890 Other specified postprocedural states
CPT/HCPCS: 96365; G0463

== ENCOUNTER 2020-07-12 13:07 | Outpatient (RCR) | payer BC ==
[~2020-07-12 13:07] MED LIST changes: +CLN.1T PO; -CLON0.1T PO
[2020-07-12] MEDS ORDERED: FERRIC CARBOXYMALTOSE (CANCER) 750 MG in NS (IVPB) CANCER CENTER 250 ML IV SCH (13:15)
== END 2020-10-10 | disposition home or self-care (01) ==
LOC: ONC 13:07
PROVIDERS: ATTEND Internal Medicine Hematology & Oncology
DX: Z51.11 Encounter for antineoplastic chemotherapy (principal); D64.9 Anemia, unspecified; I10 Essential (primary) hypertension; Z98.84 Bariatric surgery status; Z90.49 Acquired absence of other specified parts of digestive tract; Z98.890 Other specified postprocedural states
CPT/HCPCS: 96365

== ENCOUNTER → 2020-07-25 | Outpatient (CLI) | payer BC ==
[~2020-07-25] MED LIST changes: -CLN.1T PO; +CLON0.1T PO
--- NOTE | 2020-07-25 14:42 | Diagnostic Imaging Report ---
INDICATION: Right breast density. Patient returns for additional views. Correlation is made with recent screening study from 06/28/2020. Unilateral right 2-D and 3-D diagnostic mammography was performed. This included spot compression CC and ML views as well as conventional 90 degree lateral view. Distal views show persistent nodular density in the upper outer right breast approximately 13 cm from the nipple. No suspicious microcalcifications are seen. IMPRESSION: BI-RADS 0 Persistent nodular density upper outer right breast posterior depth. Further evaluation with ultrasound is recommended and will be performed today. ACR BI-RADS Category 0: Incomplete. (Needs additional imaging evaluation). Result letter will be mailed to the patient. Note: At least 10% of breast cancer is not imaged by mammography. Dictated by: Dictated on workstation # [id number]
--- NOTE | 2020-07-25 15:57 | Diagnostic Imaging Report ---
INDICATION: Right breast density. COMPARISON: Correlation is made with diagnostic mammogram of earlier the same day. EXAMINATION: Sonographic interrogation of the upper outer right breast posterior depth was performed. There is a circumscribed hypoechoic nodule at the 9:30 location, pulse image from the nipple measuring 8 mm x 4 mm x 5 mm. This has fairly benign features and may represent intraparenchymal lymph node. No other mammographic abnormality is seen. IMPRESSION: Probably benign solid nodule at the 9:30 location of right breast, 12 cm from the nipple, accounting for the mammographic abnormality. This may represent an intraparenchymal lymph node. Even so, follow-up right mammogram and right breast ultrasound in six months is recommended to show continued stability. ACR BI-RADS Category 3: Probably benign findings. Result letter will be mailed to the patient. Note: At least 10% of breast cancer is not imaged by mammography. Dictated by: Dictated on workstation # [id number]
== END ==
LOC: RAD 14:15
PROVIDERS: ATTEND Physician Assistant
DX: N63.11 Unspecified lump in the right breast, upper outer quadrant (principal)
CPT/HCPCS: 76642; 77065; G0279

== ENCOUNTER 2021-06-02 21:17 | Emergency (ER) | payer BC ==
[~2021-06-02] VITALS: Ht 155 cm; Wt 79.0 kg
[~2021-06-02 21:17] MED LIST changes: +CLN.1T PO; -CLON0.1T PO; +TIZA-169 PO; -TIZA2TAB7 PO
--- NOTE | 2021-06-02 21:27 | ED Psychosocial ---
General Chief Complaint: Overdose Stated Complaint: OD Source: patient, EMS, other (poison control) Exam Limitations: no limitations History of Present Illness Date Seen by Provider: Jun 02, 2021 Time Seen by Provider: 21:28 Initial Comments Patient is a 56-year-old female who presents to the emergency department after an overdose on Ambien. Patient called EMS after reportedly taking 29 tablets of Ambien this evening. She states to the nurse that she just did not want to wake up. She is very tearful and upset regarding Covid and all the social and political drama surrounding it. Her is a nurse at [employer]. She states that he does not know that she overdosed on Ambien this evening and states that it is okay that we talked to him. Patient states that she has been having diarrhea for the last couple of weeks and some nausea. She is uncertain what is causing this. She has not taken anything other than some [id number] Tums for it. She denies any Covid related symptoms such as fevers, chills congestion cough or shortness of breath. She states over the last 2 weeks she has been having a little bit of sharp chest discomfort and her primary care physician is treating it as GERD. Nothing makes it any better or any worse. The patient again has been taking Tums for the symptoms. She denies black or bloody stools. No urinary complaints. She does not have a therapist just her PCP. She denies any other ingestions other than the Ambien. She denies alcohol. She denies homicidal ideation, auditory or visual hallucinations. Further review of the medical record shows the patient to have had an overdose of clonidine in Oct. Patient states she has been off her antidepressant about 6 months secondary to affordability. All other review of systems reviewed and negative except as stated. Timing/Duration: just prior to arrival (Unknown time of ingestion as the patient cannot remember) Severity: severe Associated Symptoms: ingestion, suicidal ideation Allergies and Home Medications Allergies Coded Allergies: tramadol (Verified Allergy, Unknown, 11/08/19) Home Medications Acetaminophen/Diphenhydramine 1 Each Tablet, 2 TAB PO HS, (Reported) Clonidine HCl 0.1 Mg Tablet, 0.1 MG PO BID, (Reported) Diphenhydramine HCl 25 Mg Capsule, 25 MG PO Q6H PRN for DRAINAGE, (Reported) Naproxen Sodium 220 Mg Tablet, 440 MG PO Q8H PRN for PAIN-MILD (1-4), (Reported) Oseltamivir Phosphate 75 Mg Cap, 75 MG PO Q12H Prescribed by: JOANNA DICKINSON on 11/09/19 1004 Tizanidine HCl 2 Mg Tablet, 2 MG PO BID PRN for ANXIETY, (Reported) Vortioxetine Hydrobromide 10 Mg Tablet, 10 MG PO DAILY, (Reported) Zolpidem Tartrate 5 Mg Tablet, 5 MG PO HS, (Reported) Patient Home Medication List Home Medication List Reviewed: Yes Review of Systems Constitutional: see HPI EENTM: no symptoms reported Respiratory: no symptoms reported Cardiovascular: no symptoms reported Gastrointestinal: diarrhea, nausea Genitourinary: no symptoms reported Musculoskeletal: no symptoms reported Skin: no symptoms reported Psychiatric/Neurological: Depressed, Emotional Problems All Other Systems Reviewed Negative Unless Noted: Yes Past Dvlugpc-Aorccq-Busxys Hx Seasonal Allergies Seasonal Allergies: No Past Medical History Surgeries: Yes (GASTRIC BYPASS, back, neck, l knee) Appendectomy, Section, Orthopedic Respiratory: No Hypertension Neurological: Yes (SEIZURE 10-11 YEARS AGO) Female Reproductive Disorders: Denies 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 oz. 76.416742ay; 30.00 BMI Method:Stated General Appearance: WD/WN, moderate distress HEENT: PERRL/EOMI, normal ENT inspection Respiratory: lungs clear, normal breath sounds, no respiratory distress, no accessory muscle use Cardiovascular: regular rate, rhythm Peripheral Pulses: 2+ Radial Pulses (L) Gastrointestinal: normal bowel sounds, non tender, soft Extremities: normal range of motion, normal inspection Neurologic/Psychiatric: alert, oriented x 3, depressed affect Appearance/Memory: disheveled, impaired insight Behavior/Eye Contact: cooperative, normal speech Thoughts/Hallucinations: normal thought pattern, no apparent hallucination Skin: normal color, warm/dry Progress/Results/Core Measures Results/Orders Lab Results Laboratory Tests Test 06/02/21 21:35 Range/Units White Blood Count 8.3 4.3-11.0 10^3/uL Red Blood Count 4.25 3.80-5.11 10^6/uL Hemoglobin 12.9 11.5-16.0 g/dL Hematocrit 39 35-52 % Mean Corpuscular Volume 92 80-99 fL Mean Corpuscular Hemoglobin 30 25-34 pg Mean Corpuscular Hemoglobin Concent 33 32-36 g/dL Red Cell Distribution Width 13.0 10.0-14.5 % Platelet Count 320 130-400 10^3/uL Mean Platelet Volume 9.9 9.0-12.2 fL Immature Granulocyte % (Auto) 0 % Neutrophils (%) (Auto) 64 42-75 % Lymphocytes (%) (Auto) 25 12-44 % Monocytes (%) (Auto) 8 0-12 % Eosinophils (%) (Auto) 2 0-10 % Basophils (%) (Auto) 1 0-10 % Neutrophils # (Auto) 5.3 1.8-7.8 10^3/uL Lymphocytes # (Auto) 2.1 1.0-4.0 10^3/uL Monocytes # (Auto) 0.7 0.0-1.0 10^3/uL Eosinophils # (Auto) 0.2 0.0-0.3 10^3/uL Basophils # (Auto) 0.1 0.0-0.1 10^3/uL Immature Granulocyte # (Auto) 0.0 0.0-0.1 10^3/uL Sodium Level 142 135-145 MMOL/L Potassium Level 3.1 L 3.6-5.0 MMOL/L Chloride Level 107 98-107 MMOL/L Carbon Dioxide Level 24 21-32 MMOL/L Anion Gap 11 5-14 MMOL/L Blood Urea Nitrogen 11 7-18 MG/DL Creatinine 0.71 0.60-1.30 MG/DL Estimat Glomerular Filtration Rate 85 BUN/Creatinine Ratio 15 Glucose Level 92 70-105 MG/DL Calcium Level 9.4 8.5-10.1 MG/DL Corrected Calcium 9.4 8.5-10.1 MG/DL Total Bilirubin 0.4 0.1-1.0 MG/DL Aspartate Amino Transf (AST/SGOT) 21 5-34 U/L Alanine Aminotransferase (ALT/SGPT) 33 0-55 U/L Alkaline Phosphatase 78 40-136 U/L Total Protein 7.8 6.4-8.2 GM/DL Albumin 4.0 3.2-4.5 GM/DL Salicylates Level < 5.0 L 5.0-20.0 MG/DL Urine Opiates Screen NEGATIVE NEGATIVE Urine Oxycodone Screen NEGATIVE NEGATIVE Urine Methadone Screen NEGATIVE NEGATIVE Urine Propoxyphene Screen NEGATIVE NEGATIVE Acetaminophen Level < 10 L 10-30 UG/ML Urine Barbiturates Screen NEGATIVE NEGATIVE Ur Tricyclic Antidepressants Screen NEGATIVE NEGATIVE Urine Phencyclidine Screen NEGATIVE NEGATIVE Urine Amphetamines Screen NEGATIVE NEGATIVE Urine Methamphetamines Screen NEGATIVE NEGATIVE Urine Benzodiazepines Screen NEGATIVE NEGATIVE Urine Cocaine Screen NEGATIVE NEGATIVE Urine Cannabinoids Screen NEGATIVE NEGATIVE Serum Alcohol 32 H <10 MG/DL My Orders Orders - RADHA SANCHEZ MD Ed Iv/Invasive Line Start (06/02/21 21:21) Cbc With Automated Diff (06/02/21 21:21) Comprehensive Metabolic Panel (06/02/21 21:21) Drug Screen Stat (Urine) (06/02/21 21:21) Alcohol (06/02/21 21:21) Salicylate (06/02/21 21:21) Acetaminophen (06/02/21 21:21) Ekg Tracing (06/02/21 21:21) Ketorolac Injection (Toradol Injection) (06/03/21 01:00) Acetaminophen Tablet (Tylenol Tablet) (06/03/21 05:00) Medications Given in ED Current Medications Medications Dose Ordered Sig/Brittaney Route Start Time Stop Time Status Last Admin Dose Admin Acetaminophen 1,000 mg ONCE ONCE PO 06/03/21 05:00 06/03/21 05:01 DC 06/03/21 04:59 1,000 MG Ketorolac Tromethamine 15 mg ONCE ONCE IVP 06/03/21 01:00 06/03/21 01:01 DC 06/03/21 00:55 15 MG Vital Signs/I&O 06/02/21 21:20 Temp 37.0 Pulse 104 Resp 16 B/P (MAP) 145/95 (112) Pulse Ox 96 O2 Delivery Room Air 06/03/21 00:00 Intake Total 100 ml Balance 100 ml Progress Progress Note : Time: 23:23 Progress Note Notified by the save line that they are backed up with assessments. It may be several hours before they can get to her. Patient is resting comfortably. Labs have been reviewed and are all within normal limits except for alcohol was a little elevated. 0427 Patient has talked with the Save line and agreed to a safety plan. Patient will be discharged to home with her son. medications locked up and a follow up phone call will be made by [facility]. Follow up with her PCP regarding recent diarrheal complaints (she has had none while here in the ED). All questions have been sought and answered. Patient stated again that she did not believe she needed admitted for this episode and feels safe going home with the safety plan in place. I have reviewed the plan and the patient has signed it. Initial ECG Impression Date: Jun 02, 2021 Initial ECG Impression Time: 21:40 Initial ECG Rate: 98 Initial ECG Rhythm: Normal Sinus Initial ECG Intervals: Normal Initial ECG Impression: Nonspecific Changes Initial ECG Comparisson: No Previous ECG Available Departure Impression Primary Impression: Intentional overdose of drug in tablet form Additional Impressions: Headache Qualified Codes: R51.9 - Headache, unspecified Depression Qualified Codes: F32.9 - Major depressive disorder, single episode, unspecified Disposition: 01 HOME, SELF-CARE Condition: Stable Departure-Patient Inst. Decision time for Depature: 04:30 Referrals: MEI SALAS (PCP/Family) Primary Care Physician Patient Instructions: Depression, Suicide Prevention Add. Discharge Instructions: Continue your daily medications as prescribed. Please follow up with Dr Salas today regarding your visit to the Emergency Department. Followup with [facility] as per your Safety Plan. You can take over the counter Immodium for diarrhea. Please come back to the Emergency Department for any new, concerning or emergent complaints. Copy Copies To 1: DAWIT CARRILLO KATHRYN M MD Jun 02, 2021 21:27
[2021-06-02 21:48] LABS: BASOPHILS # (AUTO) 0.1 10^3/uL (0.0-0.1); BASOPHILS % (AUTO) 1 % (0-10); EOSINOPHILS # (AUTO) 0.2 10^3/uL (0.0-0.3); EOSINOPHILS % (AUTO) 2 % (0-10); HEMATOCRIT 39 % (35-52); HEMOGLOBIN 12.9 g/dL (11.5-16.0); LYMPHOCYTES # (AUTO) 2.1 10^3/uL (1.0-4.0); LYMPHOCYTES % (AUTO) 25 % (12-44); MEAN CORPUSCULAR HEMOGLOBIN 30 pg (25-34); MEAN CORPUSCULAR HGB CONC 33 g/dL (32-36); MEAN CORPUSCULAR VOLUME 92 fL (80-99); MEAN PLATELET VOLUME 9.9 fL (9.0-12.2); MONOCYTES # (AUTO) 0.7 10^3/uL (0.0-1.0); MONOCYTES % (AUTO) 8 % (0-12); NEUTROPHILS # (AUTO) 5.3 10^3/uL (1.8-7.8); NEUTROPHILS % (AUTO) 64 % (42-75); PLATELET COUNT 320 10^3/uL (130-400); WHITE BLOOD COUNT 8.3 10^3/uL (4.3-11.0)
[2021-06-02 22:01] LABS: AMPHETAMINE SCREEN, URINE NEGATIVE (NEGATIVE); BARBITURATE SCREEN URINE NEGATIVE (NEGATIVE); BENZODIAZEPINES SCREEN URINE NEGATIVE (NEGATIVE); CANNABINOID SCREEN, URINE NEGATIVE (NEGATIVE); COCAINE SCREEN URINE NEGATIVE (NEGATIVE); METHADONE STAT NEGATIVE (NEGATIVE); METHAMPHETAMINE SCREEN URINE S NEGATIVE (NEGATIVE); OPIATE SCREEN URINE NEGATIVE (NEGATIVE); OXYCODONE STAT NEGATIVE (NEGATIVE); PROPOXYPHENE STAT NEGATIVE (NEGATIVE); TRICYCLIC ANTIDEPRESSANTS SCRE NEGATIVE (NEGATIVE)
[2021-06-02 22:09] LABS: ACETAMINOPHEN < 10 UG/ML (10-30); ALANINE AMINOTRANSFERASE 33 U/L (0-55); ALKALINE PHOSPHATASE 78 U/L (40-136); BILIRUBIN,TOTAL 0.4 MG/DL (0.1-1.0); BUN/CREATININE RATIO 15; CALCIUM 9.4 MG/DL (8.5-10.1); CARBON DIOXIDE 24 MMOL/L (21-32); CHLORIDE 107 MMOL/L (98-107); CREATININE SERUM 0.71 MG/DL (0.60-1.30); GFR ESTIMATED 85; GLUCOSE 92 MG/DL (70-105); POTASSIUM 3.1 MMOL/L (3.6-5.0); SALICYLATE < 5.0 MG/DL (5.0-20.0); SODIUM 142 MMOL/L (135-145); TOTAL PROTEIN 7.8 GM/DL (6.4-8.2)
[2021-06-03] MEDS ORDERED: KETOROLAC 30 MG/ML VIAL IVP ONE (01:00)
[2021-06-03] MEDS ORDERED: ACETAMINOPHEN 500 MG TAB (TYLENOL) PO ONE (05:00)
[2021-06-03 05:15] VITALS: BP 131/81
== END 2021-06-03 05:15 | disposition home or self-care (01) ==
LOC: EDUNIT# 21:17 → ER 21:18
DX: T42.6X2A Poisoning by other antiepileptic and sedative-hypnotic drugs, intentional self-harm, initial encounter (principal); R51.9 Headache, unspecified; F32.9 Major depressive disorder, single episode, unspecified; I10 Essential (primary) hypertension
CPT/HCPCS: 80053; 80306; 85025; 93005; 99284; G0480 ×3; 36415; 80320; 80329

== ENCOUNTER 2023-06-28 12:12 | Emergency (ER) | payer SELFPAY ==
[~2023-06-28] VITALS: Ht 157.5 cm; Wt 60.0 kg
[2023-06-28 12:30] LABS: BASOPHILS # (AUTO) 0.1 10^3/uL (0.0-0.1); BASOPHILS % (AUTO) 0 % (0-10); EOSINOPHILS # (AUTO) 0.1 10^3/uL (0.0-0.3); EOSINOPHILS % (AUTO) 1 % (0-10); HEMATOCRIT 41 % (35-52); HEMOGLOBIN 13.5 g/dL (11.5-16.0); LYMPHOCYTES # (AUTO) 2.7 10^3/uL (1.0-4.0); LYMPHOCYTES % (AUTO) 22 % (12-44); MEAN CORPUSCULAR HEMOGLOBIN 29 pg (25-34); MEAN CORPUSCULAR HGB CONC 33 g/dL (32-36); MEAN CORPUSCULAR VOLUME 88 fL (80-99); MEAN PLATELET VOLUME 9.7 fL (9.0-12.2); MONOCYTES # (AUTO) 0.7 10^3/uL (0.0-1.0); MONOCYTES % (AUTO) 6 % (0-12); NEUTROPHILS # (AUTO) 8.7 10^3/uL (1.8-7.8); NEUTROPHILS % (AUTO) 71 % (42-75); PLATELET COUNT 398 10^3/uL (130-400); WHITE BLOOD COUNT 12.3 10^3/uL (4.3-11.0)
[2023-06-28] MEDS ORDERED: ASPIRIN 81 MG CHEWABLE TABLET PO ONE (12:30)
[2023-06-28] MEDS ORDERED: ONDANSETRON INJECTION 4 MG/2 ML (SDV) IVP ONE (12:30)
--- NOTE | 2023-06-28 12:30 | ED Cardiac General ---
History of Present Illness General Chief Complaint: Chest Pain Stated Complaint: CP - HIGH BP Nursing Triage Note: PT AMB TO ED BY POV WITH C/O CP BEGINNING YESTERDAY WHILE PT WAS SITTING, DESCRIBES IT HAS A TIGHT HEAVINESS. PT REPORTS SOME INTERMITTENT SOB WITH PAIN AND DIZZINESS. PT REPORTS SHE HAS BEEN UNDER INCREASED STRESS OVER THE LAST SEVERAL MONTHS, PT ANXIOUS AND TEARFUL UPON ARRIVAL. PT ALSO C/O DIARRHEA OVER THE LAST WEEK, NAUSEA BEGINNING YESTERDAY. Source: patient Exam Limitations: no limitations History of Present Illness Date Seen by Provider: Jun 28, 2023 Time Seen by Provider: 12:27 Initial Comments Patient is a 58-year-old female who presents ED with chest heaviness. Symptoms started yesterday. Started when she was sitting down. She rates pain 2 out of 10. Pain located substernal and does not radiate. Associated intermittent shortness of breath with some facial flushing and lightheadedness. She reports increased stress over the past few months. She lost her recently. She states that her son is in poor health. Recently lost her job. She states in February she was admitted at [facility] had a full cardiac work-up and thought her chest pain was secondary to grieving from the loss of her . History of hypertension not currently on blood pressure medication. She states she lost at least 40 pounds over this past year. Not eating as well. She reports nausea without vomiting. Diarrhea over the past week. She denies abdominal pain, visual changes, unilateral muscle weakness or sensory changes. Patient is tearful and crying on arrival. 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 Allergies and Home Medications Allergies Coded Allergies: tramadol (Verified Allergy, Unknown, 11/08/19) Patient Home Medication List Home Medication List Reviewed: Yes Acetaminophen/Diphenhydramine (Tylenol Pm Ex-Strength Caplet) 1 Each Tablet, 2 TAB PO HS, (Reported) Entered as Reported by: EDY AUSTIN on 11/08/19 1658 Clonidine HCl (Clonidine HCl) 0.1 Mg Tablet, 0.1 MG PO BID, (Reported) Entered as Reported by: MARIANA FOWLER on 11/08/19 1356 Diphenhydramine HCl (Benadryl) 25 Mg Capsule, 25 MG PO Q6H PRN for DRAINAGE, (Reported) Entered as Reported by: EDY AUSTIN on 11/08/19 1658 Metoprolol Succinate (Metoprolol Succinate) 50 Mg Tab.er.24h, 50 MG PO DAILY Prescribed by: REJI SORENSEN on 06/28/23 1618 Naproxen Sodium (Aleve) 220 Mg Tablet, 440 MG PO Q8H PRN for PAIN-MILD (1-4), (Reported) Entered as Reported by: EDY AUSTIN on 11/08/19 1658 Ondansetron (Ondansetron Odt) 4 Mg Tab.rapdis, 4 MG SL Q4H PRN for NAUSEA/VOMITING Prescribed by: REJI SORENSEN on 06/28/23 1620 Oseltamivir Phosphate (Tamiflu) 75 Mg Cap, 75 MG PO Q12H Prescribed by: JOANNA DICKINSON on 11/09/19 1004 Temazepam (Restoril) 7.5 Mg Capsule, 7.5 MG PO DAILY Prescribed by: REJI SORENSEN on 06/28/23 1618 Tizanidine HCl (Tizanidine HCl) 2 Mg Tablet, 2 MG PO BID PRN for ANXIETY, (Reported) Entered as Reported by: MARIANA FOWLER on 11/08/19 1356 Vortioxetine Hydrobromide (Trintellix) 10 Mg Tablet, 10 MG PO DAILY, (Reported) Entered as Reported by: MARIANA FOWLER on 11/08/19 1356 Zolpidem Tartrate (Ambien) 5 Mg Tablet, 5 MG PO HS, (Reported) Entered as Reported by: EDY AUSTIN on 11/08/19 1649 Review of Systems Review of Systems Constitutional: No chills, No diaphoresis; dizziness; No fever; malaise; No weakness EENTM: No Double Vision, No Eye Pain Respiratory: Denies Cough; Shortness of Air Cardiovascular: Chest Pain Gastrointestinal: Denies Abdominal Pain, Denies Diarrhea; Nausea; Denies Vomiting Genitourinary: Denies Burning, Denies Discharge, Denies Frequency, Denies Flank Pain Musculoskeletal: No back pain, No joint swelling Skin: No change in color All Other Systems Reviewed Negative Unless Noted: Yes Past Nvcdrrr-Hhcecl-Wdbvip Hx Patient Social History Tobacco Use?: No Use of E-Cig and/or Vaping dev: No Substance use?: Yes Substance type: Marijuana Substance frequency: Once in a while Alcohol Use?: Yes Alcohol Frequency: Once in a while Pt feels they are or have been: No Immunizations Up To Date First/Initial COVID19 Vaccinat: DECEMBER 2020 Second COVID19 Vaccination Sergei: DECEMBER 2020 Third COVID19 Vaccination Date: DECEMBER 2020 Seasonal Allergies Seasonal Allergies: No Past Medical History Surgery/Hospitalization HX: COMPLICATED GRIEF Surgeries: Yes (GASTRIC BYPASS, back, neck, l knee) Appendectomy, Section, Orthopedic Respiratory: No Hypertension Neurological: Yes (SEIZURE 10-11 YEARS AGO) Female Reproductive Disorders: Denies [employer]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 Sexually Transmitted Disease: No HIV/AIDS: No Genitourinary: Yes Kidney Infection Gastrointestinal: No Musculoskeletal: Yes Back Injury, Fractures Endocrine: No HEENT: No Loss of Vision: Denies Hearing Impairment: Denies Cancer: No Suicide Attempts, Depression Integumentary: No Blood Disorders: Yes (PREVIOUS ANEMIA) Family Medical History No Pertinent Family Hx Physical Exam Vital Signs Vital Signs - First Documented 06/28/23 12:14 Temp 36.8 Pulse 99 Resp 16 B/P (MAP) 177/115 (135) Pulse Ox 99 O2 Delivery Room Air Capillary Refill : Less Than 3 Seconds Height, Weight, BMI Height: 5'2.00" Weight: 169lbs. oz. [id number]; 24.00 BMI Method:Stated General Appearance: No Apparent Distress, WD/WN HEENT: PERRL/EOMI, TMs Normal, Normal ENT Inspection, Pharynx Normal Neck: Full Range of Motion, Normal Inspection, Non Tender Respiratory: Chest Non Tender, Lungs Clear, Normal Breath Sounds, No Accessory Muscle Use, No Respiratory Distress Cardiovascular: No Edema, No Gallop, No JVD, Tachycardia Gastrointestinal: Normal Bowel Sounds, No Organomegaly Extremity: Normal Capillary Refill, Normal Inspection, Normal Range of Motion, Non Tender Neurologic/Psychiatric: Alert, Oriented x3, No Motor/Sensory Deficits, Normal Mood/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, 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 Norm as Tested Skin: Normal Color, Warm/Dry Progress/Results/Core Measures Results/Orders Lab Results Laboratory Tests Test 06/28/23 12:18 06/28/23 15:21 Range/Units White Blood Count 12.3 H 4.3-11.0 10^3/uL Red Blood Count 4.64 3.80-5.11 10^6/uL Hemoglobin 13.5 11.5-16.0 g/dL Hematocrit 41 35-52 % Mean Corpuscular Volume 88 80-99 fL Mean Corpuscular Hemoglobin 29 25-34 pg Mean Corpuscular Hemoglobin Concent 33 32-36 g/dL Red Cell Distribution Width 13.7 10.0-14.5 % Platelet Count 398 130-400 10^3/uL Mean Platelet Volume 9.7 9.0-12.2 fL Immature Granulocyte % (Auto) 0 % Neutrophils (%) (Auto) 71 42-75 % Lymphocytes (%) (Auto) 22 12-44 % Monocytes (%) (Auto) 6 0-12 % Eosinophils (%) (Auto) 1 0-10 % Basophils (%) (Auto) 0 0-10 % Neutrophils # (Auto) 8.7 H 1.8-7.8 10^3/uL Lymphocytes # (Auto) 2.7 1.0-4.0 10^3/uL Monocytes # (Auto) 0.7 0.0-1.0 10^3/uL Eosinophils # (Auto) 0.1 0.0-0.3 10^3/uL Basophils # (Auto) 0.1 0.0-0.1 10^3/uL Immature Granulocyte # (Auto) 0.0 0.0-0.1 10^3/uL Prothrombin Time 12.9 12.2-14.7 SEC INR Comment 1.0 0.8-1.4 Activated Partial Thromboplast Time 25 24-35 SEC D-Dimer 0.47 0.00-0.49 UG/ML Sodium Level 141 135-145 MMOL/L Potassium Level 3.1 L 3.6-5.0 MMOL/L Chloride Level 103 98-107 MMOL/L Carbon Dioxide Level 25 21-32 MMOL/L Anion Gap 13 5-14 MMOL/L Blood Urea Nitrogen 20 H 7-18 MG/DL Creatinine 0.84 0.60-1.30 MG/DL Estimat Glomerular Filtration Rate 81 BUN/Creatinine Ratio 24 Glucose Level 112 H 70-105 MG/DL Calcium Level 9.6 8.5-10.1 MG/DL Corrected Calcium 9.3 8.5-10.1 MG/DL Magnesium Level 1.9 1.6-2.4 MG/DL Total Bilirubin 0.7 0.1-1.0 MG/DL Aspartate Amino Transf (AST/SGOT) 18 5-34 U/L Alanine Aminotransferase (ALT/SGPT) 20 0-55 U/L Alkaline Phosphatase 93 40-136 U/L Myoglobin 47.0 10.0-92.0 NG/ML Troponin I < 0.028 < 0.028 <0.028 NG/ML B-Type Natriuretic Peptide 11.8 <100.0 PG/ML Total Protein 8.4 H 6.4-8.2 GM/DL Albumin 4.4 3.2-4.5 GM/DL Lipase 25 8-78 U/L My Orders Orders - ANUM WALKER PA Cbc With Automated Diff (06/28/23 12:18) Magnesium (06/28/23 12:18) Chest 1 View, Ap/Pa Only (06/28/23 12:18) Ekg Tracing (06/28/23 12:18) Comprehensive Metabolic Panel (06/28/23 12:18) Myoglobin Serum (06/28/23 12:18) Protime With Inr (06/28/23 12:18) Partial Thromboplastin Time (06/28/23 12:18) O2 (06/28/23 12:18) Monitor-Rhythm Ecg Trace Only (06/28/23 12:18) Ed Iv/Invasive Line Start (06/28/23 12:18) Lipase (06/28/23 12:18) Bnp Cole (06/28/23 12:18) Fibrin Degradation Products (06/28/23 12:18) Troponin I Cole (06/28/23 12:18) Aspirin Chewable Tablet (Aspirin Chewabl (06/28/23 12:30) Ondansetron Injection (Ondansetron Inj (06/28/23 12:30) Troponin I Cole (06/28/23 15:00) Acetaminophen Tablet (Acetaminophen Ta (06/28/23 14:45) Medications Given in ED Current Medications Medications Dose Ordered Sig/Brittaney Route Start Time Stop Time Status Last Admin Dose Admin Acetaminophen 650 mg ONCE ONCE PO 06/28/23 14:45 06/28/23 14:47 DC 06/28/23 14:56 650 MG Aspirin 324 mg ONCE ONCE PO 06/28/23 12:30 06/28/23 12:31 DC 06/28/23 12:31 324 MG Ondansetron HCl 4 mg ONCE ONCE IVP 06/28/23 12:30 06/28/23 12:31 DC 06/28/23 12:31 4 MG Vital Signs/I&O 06/28/23 12:14 Temp 36.8 Pulse 99 Resp 16 B/P (MAP) 177/115 (135) Pulse Ox 99 O2 Delivery Room Air Blood Pressure Mean: 135 Comment Sinus rhythm, minimal ST depression, 95 bpm, QRS duration 85 MS, QTc 418 MS. Departure Communication (PCP) Differential diagnoses ACS, anxiety, arrhythmia, pneumonia, pneumothorax. Reji tient with chest pain substernal with shortness of breath. Increase stress at home. Recently lost of her . States her son is not doing well at this time. She recently lost her job. She states she feels anxious. Patient reports having similar type chest pain was evaluated at [facility] [place] in February had a cardiac cath which she stated was unremarkable. Cardiac work-up was initiated. EKG was negative for ST elevation. Very minimal ST depression not able to compare. She received a full aspirin. She refused anything for pain. CBC, CMP grossly unremarkable. Normal troponin, BNP, D-dimer. Chest x-ray was negative for pneumonia. She requested something for nausea. She received Zofran. Heart score of 3. She does have some cardiac risk factors. due to her reassuring lab work and presentation delta troponin was ordered 3 hours out. Delta troponin was negative. Patient blood pressure improved to 122/87. Patient remained asymptomatic. She is feeling much better. She was requesting a refill of her metoprolol but at a decreased amount. Started on 50 mg. She states she has not been eating and drinking as well and her blood pressure has been improving. She is requesting a few days of Restoril to help with her sleep until she can follow-up with her primary. Suspect that stress and anxiety is contributing to her symptoms. Due to reassuring recent cardiac work-up and lab work today patient will be discharged with strict return precautions. If any worsening symptoms return back to ED for further evaluation. She has no focal neural deficits. No strokelike symptoms. Impression Primary Impression: Chest pain Disposition: HOME, SELF-CARE Condition: Stable Departure-Patient Inst. Decision time for Depature: 16:04 Referrals: ABELINO DIOR MD NO,LOCAL PHYSICIAN (PCP) Primary Care Physician Patient Instructions: Chest Pain (DC) Add. Discharge Instructions: Recommend outpatient follow-up with cardiology. If any worsening symptoms r eturn back to ED for further evaluation. Patient agrees with plan of action. All discharge instructions reviewed with patient and/or family. Voiced understanding. Scripts Ondansetron (Ondansetron Odt) 4 Mg Tab.rapdis 4 MG SL Q4H PRN for NAUSEA/VOMITING, #8 TAB Prov: ANUM WALKER 06/28/23 Temazepam (Restoril) 7.5 Mg Capsule 7.5 MG PO DAILY, #3 CAP Prov: ANUM WALKER 06/28/23 Metoprolol Succinate (Metoprolol Succinate) 50 Mg Tab.er.24h 50 MG PO DAILY, #20 TAB Prov: ANUM WALKER 06/28/23 ANUM WALKER Jun 28, 2023 12:30
[2023-06-28 12:43] LABS: ALANINE AMINOTRANSFERASE 20 U/L (0-55); ALBUMIN 4.4 GM/DL (3.2-4.5); ALKALINE PHOSPHATASE 93 U/L (40-136); BILIRUBIN,TOTAL 0.7 MG/DL (0.1-1.0); BUN/CREATININE RATIO 24; CALCIUM 9.6 MG/DL (8.5-10.1); CARBON DIOXIDE 25 MMOL/L (21-32); CHLORIDE 103 MMOL/L (98-107); CREATININE SERUM 0.84 MG/DL (0.60-1.30); GFR ESTIMATED 81; GLUCOSE 112 MG/DL (70-105); LIPASE 25 U/L (8-78); MAGNESIUM 1.9 MG/DL (1.6-2.4); POTASSIUM 3.1 MMOL/L (3.6-5.0); SODIUM 141 MMOL/L (135-145); TOTAL PROTEIN 8.4 GM/DL (6.4-8.2)
[2023-06-28 12:45] LABS: PROTHROMBIN TIME PATIENT 12.9 SEC (12.2-14.7)
[2023-06-28 12:48] LABS: FIBRIN DEGRADATION PRODUCTS 0.47 UG/ML (0.00-0.49)
--- NOTE | 2023-06-28 13:18 | Diagnostic Imaging Report ---
INDICATION: Chest pain. Time of Exam: 12:56 PM Correlation is made with prior chest 11/09/2019. Findings: The heart size is normal. The pulmonary vascularity is unremarkable. The lungs are clear. No infiltrate, effusion or pneumothorax is detected. Impression: No acute cardiopulmonary process is detected. Dictated by: Dictated on workstation # [id number]
[2023-06-28] MEDS ORDERED: ACETAMINOPHEN 325 MG TABLET PO ONE (14:45)
[2023-06-28] MEDS ORDERED: METO50TA7 PO (16:18)
[2023-06-28] MEDS ORDERED: TEMA7.5C2 PO (16:18)
[2023-06-28 16:20] VITALS: BP 122/90
[2023-06-28] MEDS ORDERED: ONDA4TAB11 SL (16:20)
== END 2023-06-28 16:20 | disposition home or self-care (01) ==
LOC: EDUNIT# 12:12 → ER 12:13
DX: R07.2 Precordial pain (principal); R11.0 Nausea
CPT/HCPCS: 36415; 71045; 80053; 83690; 83735; 83874; 83880; 84484; 85025; 85379; 85610; 85730; 93005; 93041